=== PATIENT | female | born 1990 | race Caucasian/White ===

== ENCOUNTER 2018-01-15 16:00 | Emergency (ER) | END 2018-01-15 20:46 | disposition home or self-care (01) ==

== ENCOUNTER 2018-06-23 11:39 | Outpatient (CLI) | END 2018-06-23 14:44 | disposition home or self-care (01) ==

== ENCOUNTER 2018-07-12 15:35 | Outpatient (CLI) | END 2018-07-12 18:40 | disposition home or self-care (01) ==

== ENCOUNTER 2018-07-27 21:00 | Outpatient (CLI) | payer OTHER ==
[~2018-07-27] VITALS: Ht 152.4 cm; Wt 97.8 kg
[~2018-07-27 21:00] MED LIST: PNV11TAB PO
[2018-07-27 21:04] VITALS: Ht 152.4 cm; Wt 97.8 kg
--- NOTE | 2018-07-28 02:26 | TRIAGE ---
OB Triage Datetime Report Generated by CPN: 07/28/2018 02:26 Datetime: 07/28/2018 00:22 Labor Evaluation Frequency: x2 Monitor Mode: External Duration (sec)2399: 50-70 Pattern: Normal: <= 5 Contractions in 10 Minutes Resting Tone [place]: Relaxed Heart Rate FHR Baseline Rate: 135 Monitor Mode: External US Variability: Moderate 6-25 bpm Accelerations: 15X15 Decelerations: None Category: Category I Datetime: 07/27/2018 23:20 Stage of : OB Triage Labor Evaluation Frequency: occasional Monitor Mode: External Duration (sec)2399: 40-60 Pattern: Normal: <= 5 Contractions in 10 Minutes Resting Tone [place]: Relaxed Contraction Comments: some irritability noted Heart Rate FHR Baseline Rate: 135 Monitor Mode: External US Variability: Moderate 6-25 bpm Accelerations: 15X15 Decelerations: None Category: Category I Datetime: 07/27/2018 22:15 Stage of : OB Triage Labor Evaluation Frequency: IRREGULAR Monitor Mode: External Duration (sec)2399: 50-60 Pattern: Normal: <= 5 Contractions in 10 Minutes Resting Tone [place]: Relaxed Heart Rate FHR Baseline Rate: 145 Monitor Mode: External US Variability: Moderate 6-25 bpm Accelerations: 15X15 Decelerations: None Category: Category I Datetime: 07/27/2018 21:43 Monitor Mode: External Datetime: 07/27/2018 21:35 Stage of : OB Triage Labor Evaluation Frequency: IRREGULAR Monitor Mode: External Duration (sec)2399: 60-120 Quality: Mild Pattern: Normal: <= 5 Contractions in 10 Minutes Resting Tone [place]: Relaxed Heart Rate FHR Baseline Rate: 145 Monitor Mode: External US Variability: Moderate 6-25 bpm Accelerations: 10X10 Decelerations: None Category: Category I Vaginal Exam Dilatation (cms): 0.0 Effacement (%): 0 Station: -3 Exam By: C DARCY Cervix, Consistency: Firm Datetime: 07/27/2018 21:32 Membrane Status: Intact Datetime: 07/27/2018 21:10 Stage of : OB Triage Maternal Assessment Level of Consciousness: Fully Conscious DTR's/Clonus: DTRs 2+; No Clonus Headache: Denies Blurred Vision: No Respiratory Effort: Unlabored; Regular Rhythm; Equal Expansion Breath Sounds, Left: Clear and Equal Breath Sounds, Right: Clear and Equal Nausea/Vomiting: Denies RUQ Epigastric Pain: Denies Lower Extremities Edema: None Degree: None Upper Extremities Edema: None Degree: None Facial Edema: None Temperature Route: Oral Fall Risk Assessment History of Falling: (0) No Secondary Diagnosis: (0) No Ambulatory Aid: (0) Bedrest/Nurse Assist IV Therapy: (0) No Gait: (0) Normal/Bedrest/Immobile Mental Status: (0) Oriented to Own Ability Fall Score: 0 Fall Risk Score Definition: No Risk: No action required Pain Assessment Pain Scale: 8 Pain Presence: Intermittent Pain Type: Contraction Pain Location: Abdomen; Back Datetime: 07/27/2018 21:08 Monitor Mode: External Contraction Comments: APPLIED Monitor Mode: External US Comments: APPLIED Datetime: 07/12/2018 18:42 Time of Arrival: 07/27/2018 20:56 EGA: 38.6 Arrived By: Ambulatory Arrived From: Home Chief Complaint: CONTRACTIONS SINCE 0500 Movement: Present Contractions: Regular Time Contractions Began: 07/27/2018 05:00 Contractions: 2-3 Rupture of Membranes: Denies Vaginal Bleeding: None Vaginal Discharge: Denies Recent Sexual Intercouse: Denies Abdominal Trauma: Not Applicable Patient Complaints: Contractions; Cramping; Back Pain Time Provider Notified: 07/27/2018 22:00 Provider Notified: DR. RICHARDSON Initial Plan: EFM, SVE, CALL OB Datetime: 07/12/2018 16:39 Fall Score: 0 Fall Risk Score Definition: No Risk: No action required Datetime: 07/12/2018 16:38 EGA: 36.5 Datetime: 06/23/2018 14:49 EGA: 34.0 Datetime: 06/23/2018 12:48 Fall Score: 0 Fall Risk Score Definition: No Risk: No action required
--- NOTE | 2018-07-28 04:40 | PN ---
Triage Information Date/Time Reason for visit: Abd/pelvic pain Weeks of Gestation 38 weeks and 6 days /Para 042 Diabetes: none Hypertention: none Additional information 28-year-old 042 at 38 weeks and 6 days with a JOSELITO of 08/04/2018 complaining of abdominal pain. She states good movement. She denies nausea, vomiting, shortness of breath, chest pain, headache, visual changes, vaginal bleeding or LOF. Objective Heart Rate: 140's Results/Medications Results 24 hrs Laboratory Tests Test 07/27/18 22:00 Urine Color YELLOW Urine Clarity SLIGHTLY CLOUDY A Urine pH 6.0 Urine Specific [place] 1.029 Urine Ketones NEGATIVE Urine Nitrite NEGATIVE Urine Bilirubin NEGATIVE Urine Urobilinogen 1+ H Urine Leukocyte Esterase NEGATIVE Urine Microscopic RBC 1 Urine Microscopic WBC 2 Urine Squamous Epithelial Cells FEW Urine Bacteria FEW A Urine Mucus FEW A Urine Hemoglobin NEGATIVE Urine Glucose NEGATIVE Urine Total Protein 1+ H Disposition: Discharge Assessment/Plan 28-year-old at 38 weeks and 6 days complaining of abdominal pain. Her exam is unremarkable. heart rate is category 1. She has occasional uterine contractions. Vaginal exam performed; closed/thick/highs/cephalic/intact membrane. Sign and symptom of labor, preeclampsia and kick count discussed with patient in detail. She expressed understanding. All of her questions answered. She discharged home in stable condition with follow-up in 2-3 days seen clinic. AVILA RICHARDSON Jul 28, 2018 04:40
== END 2018-07-28 00:30 | disposition home or self-care (01) ==
LOC: OBT 21:00 → L-D 21:01 → OBT 07-28 00:30
PROVIDERS: ATTEND Obstetrics & Gynecology
DX: O62.9 Abnormality of forces of labor, unspecified (principal); Z3A.38 38 weeks gestation of pregnancy
CPT/HCPCS: 76818; 81001; Z7500; G0463